=== PATIENT | female | born 1980 | race Caucasian/White ===

== ENCOUNTER 2021-02-09 18:29 | Emergency (ER) | payer OTHER ==
[~2021-02-09 18:29] MED LIST: BACTRIM DS TAB1 EACH PO; CYCLOBENZAPRINE5 MG PO; ERYTHROMYCIN OP1 GM EYELF; GLUCOPHAGE XR500 MG PO; IBUPROFEN800 MG PO; KEFLEX500 MG PO; LEVEMIR100 UNIT/1 SQ; MULTI-VITAMIN1 EAC1 PO; PROZAC40 MG PO; ZYVOX 600 MG T600 MG PO
== END 2021-02-09 21:00 | disposition home or self-care (01) ==
LOC: ER1 18:29
DX: E11.9 Type 2 diabetes mellitus without complications (principal); I10 Essential (primary) hypertension; F11.20 Opioid dependence, uncomplicated; Z76.0 Encounter for issue of repeat prescription
CPT/HCPCS: 99281; 99283

== ENCOUNTER → 2021-03-25 | Outpatient (CLI) | payer OTHER | LOC: KOH-I 15:08 | DX: M54.41 Lumbago with sciatica, right side (principal); M54.42 Lumbago with sciatica, left side; M47.812 Spondylosis without myelopathy or radiculopathy, cervical region | CPT/HCPCS: 72100 ==

== ENCOUNTER 2021-04-09 22:30 | Emergency (ER) | payer OTHER ==
[2021-04-10] MEDS ORDERED: LODINE CAP 300300 MG PO (03:49)
[2021-04-10] MEDS ORDERED: DECADRON6 MG PO (03:49)
[2021-04-10] MEDS ORDERED: VENTOLIN HFA 66.7 GM INH (03:49)
== END 2021-04-10 05:20 | disposition home or self-care (01) ==
LOC: ER1 22:30
DX: Z23 Encounter for immunization (principal); U07.1 COVID-19; E11.9 Type 2 diabetes mellitus without complications; I10 Essential (primary) hypertension; Z79.4 Long term (current) use of insulin; F17.290 Nicotine dependence, other tobacco product, uncomplicated
CPT/HCPCS: 99283; M0243

== ENCOUNTER → 2021-04-15 | Outpatient (CLI) | payer OTHER ==
[~2021-04-15] MED LIST changes: +DECADRON6 MG PO; +LODINE CAP 300300 MG PO; +VENTOLIN HFA 66.7 GM INH
[2021-04-15 11:48] LABS: HEMOGLOBIN 12.4 gm/dl (12.3-15.3); RED BLOOD COUNT 4.55 M/UL (4.00-5.10); WHITE BLOOD COUNT 12.1 K/UL (4.5-11.0)
[2021-04-16 08:13] LABS: ESTRADIOL 46.5 pg/mL (.); LUTEINIZING HORMONE(LH) 14.5 mIU/mL (.); PROLACTIN 12.6 ng/mL (4.8-23.3)
== END ==
LOC: LAB 10:57
PROVIDERS: Nurse Practitioner
DX: N93.8 Other specified abnormal uterine and vaginal bleeding (principal)
CPT/HCPCS: 36415; 82670; 82728; 83001; 83002; 83540; 83550; 84146; 84439; 84443; 84702; 85025

== ENCOUNTER 2021-05-22 17:31 | Emergency (ER) | payer OTHER ==
[2021-05-22 18:04] LABS: HEMOGLOBIN 14.4 gm/dl (12.3-15.3); RED BLOOD COUNT 4.96 M/UL (4.00-5.10); WHITE BLOOD COUNT 7.8 K/UL (4.5-11.0)
[2021-05-22 18:46] LABS: BUN/CREATININE RATIO 15 (0-10)
== END 2021-05-22 18:47 | disposition short-term general hospital (02) ==
LOC: ER1 17:31
PROVIDERS: Emergency Medicine
DX: U07.1 COVID-19 (principal); I63.9 Cerebral infarction, unspecified; R29.705 NIHSS score 5; E11.65 Type 2 diabetes mellitus with hyperglycemia; I10 Essential (primary) hypertension
CPT/HCPCS: 51702; 70450; 80053; 80307; 81001; 82962; 84703; 85025; 85610; 85730; 93005; 99285; J2997; U0002

== ENCOUNTER 2021-10-21 18:12 | Emergency (ER) | payer OTHER | END 2021-10-21 22:00 | disposition left against medical advice (07) | LOC: ER1 18:12 | DX: R60.0 Localized edema (principal); R41.0 Disorientation, unspecified; R51.9 Headache, unspecified; E10.9 Type 1 diabetes mellitus without complications; F17.200 Nicotine dependence, unspecified, uncomplicated; Z86.73 Personal history of transient ischemic attack (TIA), and cerebral infarction without residual deficits | CPT/HCPCS: 70450; 99283 ==

== ENCOUNTER 2022-01-28 20:42 | Emergency (ER) | payer OTHER | END 2022-01-28 21:35 | disposition left against medical advice (07) | LOC: ER1 20:42 | DX: R11.2 Nausea with vomiting, unspecified (principal); R19.7 Diarrhea, unspecified; Z86.73 Personal history of transient ischemic attack (TIA), and cerebral infarction without residual deficits; I10 Essential (primary) hypertension; E11.9 Type 2 diabetes mellitus without complications; Z90.89 Acquired absence of other organs; F17.210 Nicotine dependence, cigarettes, uncomplicated | CPT/HCPCS: 99283 ==